=== PATIENT | female | born 1980 | race Caucasian/White ===

== ENCOUNTER 2017-12-21 04:22 | Day surgery (SDC) | payer BC ==
[2017-12-21 05:02] VITALS: BP 100/59; TEMP 98.6; BMI 21.0
[2017-12-21 06:10] LABS: Bilirubin Negative (Negative); Blood, Urine Negative (Negative); Clarity CLEAR (Clear); Glucose, Urine (Dipstick) Negative (Negative); Leukocyte Negative (Negative); Nitrite Negative (Negative); Protein, Urine (Dipstick) Negative (Neg-Trace); Specific Gravity, Urine 1.014 (1.002-1.036); Urobilinogen 0.2 mg/dL (0.2-1.0)
[2017-12-21 06:13] LABS: Bacteria/HPF None Seen HPF (None Seen); Hyaline Casts/LPF 0-3 HYALINE CAST LPF (0-3 Hyaline); Pathc Cast-AUWi Flag 0.14 (0-2.49); RBC/HPF 0-3 HPF (0-3); Squamous Epithelial None Seen HPF (0-3); WBC/HPF None Seen HPF (0-3)
[2017-12-21 06:30] LABS: FFN Internal QC Analyzer PASS (PASS); FFN Internal QC Cassette PASS (PASS); Fetal Fibronectin Negative (Negative)
--- NOTE | 2017-12-21 07:20 | ER ---
DATE OF ENCOUNTER: 12/21/2017 OB ER ENCOUNTER PRIMARY OB: Rachel Foster M.D. HISTORY OF PRESENT ILLNESS: The patient is a 37-year-old G4, P1 female with an intrauterine pregnanc y at 26 weeks and 1 day, who is presenting to Labor and Delivery after experiencing some contractions since last night. The patient reports that she is feeling about 4 contractions an hour. She felt t hem yesterday during the day, into the evening, and was woken up again after going to sleep with thes e contractions. The patient came to the emergency room for evaluation. Patient denies any history o f deliveries. She denies any history of urinary tract infections. She denies any change in her discharge, any vaginal bleeding or leakage of fluid. She denies fever, headache, chest pain, jensen rtness of breath, nausea, vomiting, diarrhea. The patient does report she has had some constipation intermittently for the last several months of her . The patient denies any new rashes. She denies vaginal bleeding, leakage of fluid, urinary urgency or frequency. PAST MEDICAL HISTORY: Negative. PAST SURGICAL HISTORY: Negative. ALLERGIES: No known drug allergies. MEDICATIONS: vitamins. OB LABS: Unavailable. SOCIAL HISTORY: Denies drug, alcohol, or tobacco use. ALLERGIES: No known drug allergies. MEDICATIONS: vitamins. REVIEW OF SYSTEMS: Per HPI. PHYSICAL EXAMINATION: VITAL SIGNS: Blood pressure 100/59, heart rate of 82, respiratory rate of 18, satting 97% on room ai r, temperature 98.6. GENERAL: The patient appears to be in no acute distress. She is alert and oriented, cooperative, an d pleasant to interact with. HEENT: Head is normocephalic, atraumatic. CHEST: Clear to auscultation bilaterally. HEART: Regular rate and rhythm. ABDOMEN: Soft and gravid. EXTREMITIES: Nontender, nonedematous. She has no vertebral tenderness or paravertebral tenderness. She does have some SI joint tenderness on the right side. PELVIC: Vulva is without masses, lesions, or erythema. Vagina is moist. She does have some thick d ischarge, though minimal. Cervix is visibly closed. On digital exam, cervix is closed. heart tracing performed for abdominal pain in is noted to be in the 140s with moderat e long-term variability, appropriate for a gestational age. Tocometer shows no contractions. fibronectin is collected and is negative. Urinalysis is also collected, noted to have negative protein, negative blood, negative leukocyte esterase, negative nitrites, no red blood cells, no whit e blood cells, no squamous cells, no bacteria. VP3 is pending. ASSESSMENT AND PLAN: The patient is a 37-year-old female, G4, P1, with an intrauterine at 26 weeks, who presented with complaints of uterine contractions intermittently over the last day or s o. The patient has no evidence of labor at this time. Fetus is a category 1 tracing appropriate for gestational age. The patient has been given reassurance. No evidence of urinary tract infection. There is a GM VIDEO-3 pending, which results will be available later this morning. The patient has been gi estiven instructions to call back after about 09:00. Patient has been given labor precautions an d has been given instructions to follow up with Dr. Foster as scheduled.
== END 2017-12-21 06:55 | disposition home or self-care (01) ==
LOC: L&D/OP 04:22
PROVIDERS: ATTEND Obstetrics & Gynecology
DX: O47.03 False labor before 37 completed weeks of gestation, third trimester (principal); Z3A.26 26 weeks gestation of pregnancy
CPT/HCPCS: 81001; 82731; 87480; 87510; 87660; 99284

== ENCOUNTER 2018-03-29 05:36 | Inpatient (IN) | payer BC ==
[~2018-03-29 05:36] MED LIST: Bicitra 30 ML UDCUP PO SCH; CEFAZOLIN/Water 2 GM/20 ML SYRINGE SLOW IVP SCH; Ondansetron HCl/PF 4 MG/2 ML Vial IVP PRN; Promethazine HCl 25 MG/ML VIAL IM PRN
[2018-03-29] MEDS: Lactated Ringer's 1,000 ML IV SCH ×3 (06:09→22:56)
[2018-03-29 06:17] VITALS: BMI 26.9
[2018-03-29] MEDS ORDERED: Fentanyl 100 MCG/2 ML VIAL ONE (06:57)
[2018-03-29] MEDS ORDERED: Morphine PF 1 MG/ML SYR ONE (06:58)
[2018-03-29] MEDS ORDERED: Bupivacaine 0.75% W/DEXTROSE 8.25% 2 ML AMP ONE (06:59)
[2018-03-29] MEDS ORDERED: Lidocaine 1% PF 5 ML VIAL ONE (06:59)
[2018-03-29] MEDS ORDERED: Oxytocin 10 UNITS/ML VIAL ONE (06:59)
[2018-03-29] MEDS ORDERED: Dexamethasone 4 mg/ml Vial ONE (06:59)
[2018-03-29] MEDS ORDERED: ePHEDrine/0.9% NaCl/PF SYRINGE 50 mg/10 ml ONE ×2 (06:59→14:34)
[2018-03-29] MEDS ORDERED: PHENYLEPHRINE-NS 100 MCG/ML 10 ML SYRINGE ONE ×2 (06:59→14:34)
[2018-03-29] MEDS ORDERED: Ondansetron HCl/PF 4 MG/2 ML Vial ONE ×2 (06:59→14:34)
[2018-03-29 07:09] LABS: Hemoglobin 13.3 g/dL (12.0-16.0); Mean Corpuscular HGB CONC 33.6 g/dL (32.0-36.0); Mean Corpuscular Hemoglobin 31.4 pg (27.0-31.0); Mean Corpuscular Volume 93.3 fL (78.0-98.0); Mean Platelet Volume 7.3 fL (7.4-10.4); Platelet Count 290 thou/uL (130-400); RBC Distribution Width 12.4 % (11.5-14.5); Red Blood Cell (RBC) Count 4.23 mill/uL (4.20-5.40); White Blood Cell (WBC) Count 13.5 thou/uL (4.8-10.8)
[2018-03-29 07:35] LABS: Syphilis Antibody Nonreactive (Nonreactive); Syphilis Antibody Index 0.03 S/CO (<1.00 Non-Reactive)
[2018-03-29 07:36] LABS: HBSAg Index 0.18 S/CO (0-0.99); Hep B Surf Ag Non-Reactive S/CO (NonReactive)
[2018-03-29] MEDS ORDERED: HYDROmorphone 2 MG/ML VIAL SLOW IVP PRN ×2 (08:13→09:47)
[2018-03-29] MEDS ORDERED: Naloxone HCl 0.4 mg/ml Vial IV PRN ×2 (08:13→09:47)
[2018-03-29] MEDS ORDERED: diphenhydrAMINE 50 MG/ML VIAL IVP PRN ×2 (08:13→09:47)
[2018-03-29] MEDS ORDERED: Meperidine HCl/PF 25 MG/ML VIAL SLOW IVP PRN (08:13)
[2018-03-29] MEDS ORDERED: Promethazine HCl 25 MG/ML VIAL IM PRN ×2 (08:13→09:47)
[2018-03-29] MEDS ORDERED: Promethazine HCl 25 MG SUPP PR PRN ×2 (08:13→09:47)
[2018-03-29] MEDS ORDERED: Naloxone HCl 0.4 mg/ml Vial IVP PRN ×4 (08:13→09:47)
[2018-03-29] MEDS ORDERED: Ondansetron HCl/PF 4 MG/2 ML Vial IVP PRN ×4 (08:13→09:47)
[2018-03-29] MEDS ORDERED: Eucerin (Mineral Oil/Petrolatum,White) 30 gm Jar TOP PRN ×2 (08:13→09:47)
[2018-03-29] MEDS ORDERED: L&D-Morphine 4 MG/ML VIAL SLOW IVP PRN ×2 (08:13→09:47)
[2018-03-29] MEDS ORDERED: Ketorolac Tromethamine 30 MG/ML VIAL IVP SCH ×3 (08:15→10:00)
[2018-03-29] MEDS ORDERED: Communication Order-Pharmacy FS SCH ×2 (08:15→10:00)
[2018-03-29] MEDS ORDERED: Bisacodyl 10 MG SUPP PR PRN (08:32)
[2018-03-29] MEDS ORDERED: Acetaminophen/Codeine 30-300mg Tablet PO PRN ×4 (08:32→22:00)
[2018-03-29] MEDS ORDERED: diphenhydrAMINE 25 MG CAP PO PRN (08:32)
[2018-03-29] MEDS ORDERED: Lanolin Ointment 7 GM TUBE TOP PRN (08:32)
[2018-03-29] MEDS ORDERED: Misoprostol 200 MCG TAB PR PRN (08:32)
[2018-03-29] MEDS ORDERED: Adacel (T-DAP) 0.5 ML VIAL IM ONE (08:32)
[2018-03-29] MEDS ORDERED: Simethicone Chewable 80 MG TAB PO PRN (08:32)
--- NOTE | 2018-03-29 08:37 | PDOC.OPDEL ---
OB Operative/Delivery Note Delivery Dr/Surgeon: Kristin Assist: Candice Pre-Delivery Diagnosis: scheduled section Procedure/Post Delivery Dx: repeat low transverse CS (Risk Reduction Salpingectomy) Weeks gestation: 40 Anesthesia: spinal - Findings A Sex: male Weight: 8 lb 9 oz - 1 min: 8 - 5 min: 9 - Additional Findings/Plan Placenta delivered: manual removal findings: low transverse hysterotomy without extension Estimated blood loss: 600ml Post delivery plan: routine recovery
[2018-03-29] MEDS ORDERED: Morphine 4 MG/ML VIAL SLOW IVP PRN ×2 (09:15→09:47)
--- NOTE | 2018-03-29 11:31 | OP ---
DATE OF PROCEDURE: 03/29/2018 PREOPERATIVE DIAGNOSES: 1. A 38-year-old female, , A2, prior section, desires repeat s ection. 2. Also, risk reduction salpingectomy due to family history of breast cancer. POSTOPERATIVE DIAGNOSES: 1. A 38-year-old female, A2, prior section, desires repeat se ction. 2. Risk reduction salpingectomy due to family history of breast cancer. PROCEDURE: 1. Repeat low transverse section without extension. 2. Bilateral risk reduction salpingectomy. SURGEON: Rachel Foster M.D. REPAIR SPECIALIST SURGEON: Maliha Harvey D.O. ANESTHESIA: Spinal block. QUANTITATIVE BLOOD LOSS: 475 mL. FINDINGS: 1. Vigorous male infant, vertex presentation, Apgars 8 and 9, weight 8 pounds 9 ounces. 2. Normal-appearing uterus, fallopian tubes and ovaries. PATHOLOGY: Bilateral fallopian tubes. DISPOSITION: To the recovery room stable. DESCRIPTION OF OPERATIVE PROCEDURE: The patient previously received informed consent in regards to marisa lama. She was taken back to the operating room where she received a spinal block without complicat ions. She was then placed in supine position, prepped and draped in usual sterile fashion. Pfannens tiel incision was made through the previous scar site. This was taken down to the fascia. Fascia wa s nicked in midline. Fascial incision was extended bilaterally with the use of curved Slade scissors. The rectus fascia was dissected superiorly and inferiorly off the rectus muscle bellies. Rectus mu scle bellies were divided in the midline. The peritoneal cavity was entered. A large Vahe O retra ctor was placed and a bladder flap was created in usual fashion. A 2 cm hysterotomy incision was the n made. The amniotic bag was ruptured after the incision was extended via finger fractionation and t he baby was delivered in the vertex presentation. The mouth and nares of the were bulb suctio lesley on the abdomen. The cord was doubly clamped and cut [facility] The usual cord blood was obtained. The placenta was manually extracted. Uterus was externalize d and the uterus was curetted of any remaining placental fragments with a dry laparotomy sponge. Hys terotomy incision was then closed with #1 Monocryl in running locking fashion with good hemostasis be ing confirmed. Attention was then taken to the bilateral salpingectomy. The right fallopian tube was identified. I t was grasped in midportion of the fallopian tube and defects in the avascular components of the meso salpinx were made with Bovie cautery. Each of these pedicles were tied with 0 chromic suture and the y were incised superiorly to this on the fallopian tube side, removing the specimen, the fallopian tu be completely. This was repeated in likewise manner on the left fallopian tube. The pedicle sites w ere confirmed to be hemostatic. The uterus was returned back in the abdomen. Pelvis was irrigated a nd suctioned. The hysterotomy incision again was noted to be hemostatic. The Vahe O retractor was removed. Again, hemostasis of the hysterotomy site was confirmed. The rectus muscle bellies were n oted to be hemostatic prior to fascial closure. The fascia was closed with 0 PDS suture x2 in runnin g continuous fashion. Subcutaneous tissue was noted to be hemostatic prior to skin approximation wit h jemima. The surgery was terminated. No anesthetic or surgical complications.
[2018-03-29] MEDS: Prenatal Vitamin 1 TAB PO SCH (12:48)
[2018-03-29] MEDS: Docusate Calcium (SURFAK) 240 MG CAP PO SCH ×2 (12:49→23:00)
[2018-03-29] MEDS ORDERED: Ibuprofen 800 MG TAB PO SCH (14:00)
[2018-03-29] MEDS ORDERED: Dexamethasone 20 MG/5 ML VIAL ONE (14:34)
[2018-03-29] MEDS ORDERED: NS / Oxytocin 40 units/1000ml 1,000 ML ONE (14:42)
[2018-03-29] MEDS: Ketorolac Tromethamine 30 MG/ML VIAL IVP SCH ×2 (16:52→22:54)
[2018-03-30] MEDS: Ketorolac Tromethamine 30 MG/ML VIAL IVP SCH (05:16)
--- NOTE | 2018-03-30 07:48 | PDOC.PP ---
Post Progress Note Post Day #: 1 PO intake tolerated: yes Flatus: yes Ambulation: yes Vital Signs (12 hours) Temp Pulse Resp BP 03/30/18 04:55 98.0 F 71 20 89/52 L 03/30/18 00:15 98.0 F 72 20 92/55 L 03/29/18 20:30 98.4 F 73 20 104/56 L Weight Weight 147 lb - Physical Examination Abdominal: + bowel sounds, lochia, no distention, appropriately TTP Extremities: negative homans (B) Skin: CS incision dry & intact Result Diagrams: 03/30/18 07:24 Additional Labs: Post Labs Blood Type A POSITIVE 03/29/18 06:10 Hep Bs Antigen Non-Reactive S/CO (NonReactive) 03/29/18 06:10 - Assessment/Plan Post op day 1-doing well. Routine care. D/c in AM.
[2018-03-30 07:54] LABS: Mean Corpuscular Hemoglobin 30.4 pg (27.0-31.0); Mean Corpuscular Volume 95.1 fL (78.0-98.0); Mean Platelet Volume 7.3 fL (7.4-10.4); Platelet Count 286 thou/uL (130-400); RBC Distribution Width 12.3 % (11.5-14.5); Red Blood Cell (RBC) Count 3.63 mill/uL (4.20-5.40); White Blood Cell (WBC) Count 12.4 thou/uL (4.8-10.8)
--- NOTE | 2018-03-30 07:58 | PDOC.PP ---
Post Progress Note Post Day #: 1 Vital Signs (12 hours) Temp Pulse Resp BP 03/30/18 04:55 98.0 F 71 20 89/52 L 03/30/18 00:15 98.0 F 72 20 92/55 L 03/29/18 20:30 98.4 F 73 20 104/56 L Weight Weight 147 lb - Physical Examination Abdominal: + bowel sounds, lochia, no distention, appropriately TTP Skin: CS incision dry & intact, no rash Result Diagrams: 03/30/18 07:24 Additional Labs: Post Labs Blood Type A POSITIVE 03/29/18 06:10 Hep Bs Antigen Non-Reactive S/CO (NonReactive) 03/29/18 06:10 - Assessment/Plan post op day 1--doing well. HCT 34.5. feels well. Will consider discharge late this afternoon if doing well. f/u post op day 7
[2018-03-30] MEDS: Prenatal Vitamin 1 TAB PO SCH (09:24)
[2018-03-30] MEDS: Docusate Calcium (SURFAK) 240 MG CAP PO SCH (09:25)
[2018-03-30 11:59] VITALS: BP 93/53; TEMP 97.8
[2018-03-30] MEDS: Ibuprofen 800 MG TAB PO SCH ×2 (13:45→13:47)
== END 2018-03-30 17:00 | disposition home or self-care (01) | DRG 785 ==
LOC: L&D 05:36 → 3SW 16:13
PROVIDERS: ADMIT Obstetrics & Gynecology; ATTEND Obstetrics & Gynecology
PROC: 10D00Z1 Extraction of Products of Conception, Low, Open Approach (ICD-10-PCS; principal; 2018-03-29)
PROC: 0UT70ZZ Resection of Bilateral Fallopian Tubes, Open Approach (ICD-10-PCS; 2018-03-29)
DX: O34.211 Maternal care for low transverse scar from previous cesarean delivery (principal); Z3A.37 37 weeks gestation of pregnancy; Z37.0 Single live birth
CPT/HCPCS: 36415; 51702; 85027; 86780; 86850; 86900; 86901; 87340; 88302; J1100; J1885; J2001; J2274; J2405; J2590; J3010; J3490